=== PATIENT | male | born 1965 | race Caucasian/White ===

== ENCOUNTER 2018-06-13 13:50 | Emergency (ER) | payer BC, SELFPAY ==
[2018-06-13 13:56] VITALS: BP 113/95; PULSE 85; RESP 20; TEMP 37; O2SAT 95
--- NOTE | 2018-06-13 14:35 | ED.GENADUL_ITS ---
Discharge Plan Disposition Patient Disposition: HOME Condition: Fair Discharge Details Chief Complaint: Laceration Clinical Impression: Laceration Primary Care Provider: Adarsh Lima ED Provider: Arin Gunderson Home Meds and New Rx's Prescriptions: No Action No Known Home Meds RF: 0 Discharge Instructions Instructions: Laceration (ED), Skin Adhesive Care (ED) Additional Instructions: Keep wound clean, dry, covered. Monitor for signs of infection including redness, warmth, drainage, fever/chills, increased pain. These arise please seek care urgently once again. You may Wash the wound starting tomorrow with running water but do not soak or submerge. Will have adhesive to come off naturally. Please not put any ointment over the adhesive as this may cause premature breakdown. Please follow up with primary care as needed. Referrals: Adarsh Lima, [Primary Care Provider] - Discharge Data Discharge Date/Time-TO BE ENTERED AT DEPARTURE: 06/13/18 14:56 Medical Decision Making Patient presents with c/c of laceration to the right forearm with piece of evert. He is UTD. On exam, patient has a superficial wound to the dorsal aspect of the right forearm, approximately 4cm in length. The ednges of the wound are very thin, one area of which is 5mm in length and nearly completely amputated. The skin in this area has darkened and I discussed my concern for its viability with the patient. We did discuss revision of the wound edges but he prefers to leave this intact at this time. Given the depth, I did not recomenned suture closure. Rather, we discussed closure with adhesive. Discussed risks/benefits and procedural steps, he voices understanding and wishes to proceed. The wound was explored and irrigated. Cleansed with chlorohexidine. Wound edges were placed in approximated fashion, thin layer of adhesive aplied. Dressing applied over this by nursing staff. We discussed care of wound and adhisive. Discusses signs and symptoms of infectiono and when to seek care urgently once again. All of his quesitons and concerns were addressed, he is in agreement with this plan. HPI General Mode of arrival: ambulatory . Date/Time Provider Initiated Documentation: 06/13/18 14:06 . Limitations to Documentation: no limitations . Information obtained by: patient and family . HPI Narrative: Patient a 52-year-old [id number] male, accompanied by his , with chief complaint of laceration to the right dorsal forearm. Was afraid of arrival he was walking outside when he caught his arm with a piece of tin that was covering his wood pile. Denies other injury at the time of the incident. Denies any sensation. Denies any weakness or pain with movement of the elbow or wrist pain. Reports tetanus was 3 years ago. Related Data Home Medications Medication Instructions Recorded Confirmed Unknown [No Known Home Meds] 10/30/17 06/13/18 Allergies Allergy/AdvReac Type Severity Reaction Status Date / Time No Known Allergies Allergy Unverified 06/13/18 13:58 General Stated Complaint: Laceration EBONY: 3 Review of Systems Constitutional Denies chills and Denies fever(s) Musculoskeletal Reports as per HPI, Denies joint swelling, Denies limited range of motion, Denies muscle weakness, Denies numbness, Denies stiffness and Denies tingling Integumentary/Breasts Reports as per HPI Neurologic Reports as per HPI, Denies numbness and Denies tingling PFSH Family History Mother No problems noted. Father Aortic aneurysm Hyperthyroidism Thyrotoxicosis Brother No problems noted. Brother No problems noted. Brother No problems noted. Grandfather No problems noted. Grandfather Neoplasm Grandmother No problems noted. Grandmother No problems noted. Social History Smoking/Tobacco Use Status: Never Exam Const General: cooperative, healthy appearing, comfortable, no acute distress, well developed and well groomed Nutritional Appearance: average body habitus and well nourished Orientation: alert and awake Resp Effort & Inspection: normal respiratory effort, able to speak in complete sentences and no respiratory distress Cardio Rate: regular rate Rhythm: regular rhythm Skin Trauma: laceration (patient has a irregularly shaped 4cm skin tear. Lateral most edge is lifted up in a thin small segment, this has already begun to darken. Does not expose the subcutaneous tissue. No surrounding erythema, warmth or drainage. No pain with palpation. ) Neuro General: alert and awake Cognition: normal cognition Motor: muscle tone normal throughout and strength 5/5 throughout Sensory Exam: no sensory deficits noted Extrem General: abnormal to inspection (laceration to the dorsal aspect of the right forearm. ), full ROM, normal capillary refill, no joint enlargement and normal gait Psych Appearance: grossly normal and well kempt Mental Status: mental status grossly normal Speech and Movement: speech and movement normal Course Vital Signs Temperature 37 C 06/13/18 13:56 Pulse 85 06/13/18 13:56 Respiratory Rate 20 06/13/18 13:56 Blood Pressure 113/95 H 06/13/18 13:56 Pulse Oximetry 95 06/13/18 13:56 Temperature 37 C 06/13/18 13:56 Temperature Source Temporal Artery Scan 06/13/18 13:56 Pulse 85 06/13/18 13:56 Respiratory Rate 20 06/13/18 13:56 Respiratory Effort Non-Labored 06/13/18 14:00 Blood Pressure 113/95 H 06/13/18 13:56 Pulse Oximetry 95 06/13/18 13:56 Oxygen Delivery Method Room Air 06/13/18 13:56 Oxygen Flow Rate 0 06/13/18 13:56 Pain Level 0 06/13/18 13:56 Procedures Laceration right forearm: Site: upper extremity Side (If applicable): right Size (cm): 4 Description: flap, irregular and clean Depth: simple, single layer (very superficial, not actively bleeding) Pre-repair: wound explored and irrigated extensively Skin layer closed with: other (adhesive)
== END 2018-06-13 14:56 | disposition home or self-care (01) ==
PROVIDERS: Emergency Provider Physician Assistant; PCP Emergency Medicine
DX: S51.811A Laceration without foreign body of right forearm, initial encounter (principal); W26.8XXA Contact with other sharp object(s), not elsewhere classified, initial encounter
CPT/HCPCS: 12002

== ENCOUNTER 2018-08-28 02:00 | Outpatient (CLI) | payer BC, SELFPAY ==
[2018-08-28 08:38] LABS: Cholesterol 251 mg/dL (50-200); HDL Cholesterol 43 mg/dL (40-60); LDL CHOLESTEROL 189 mg/dL (<100); Triglyceride 57 mg/dL (30-150)
== END 2018-08-28 02:20 ==
PROVIDERS: PCP Emergency Medicine; Visit Provider Emergency Medicine
DX: E78.5 Hyperlipidemia, unspecified (principal); Z00.00 Encounter for general adult medical examination without abnormal findings
CPT/HCPCS: 36415; 80061; 83721

== ENCOUNTER 2018-11-27 09:28 | Outpatient (CLI) | payer BC, SELFPAY ==
[2018-11-27 13:17] LABS: Cholesterol 247 mg/dL (50-200); HDL Cholesterol 45 mg/dL (40-60); LDL CHOLESTEROL 181 mg/dL (<100); Triglyceride 71 mg/dL (30-150)
[2018-11-28 09:38] LABS: PSA, Screening 1.3 ng/ml (0-3.5)
== END 2018-11-27 09:48 ==
PROVIDERS: PCP Emergency Medicine; Visit Provider Emergency Medicine
DX: Z00.00 Encounter for general adult medical examination without abnormal findings (principal); Z12.5 Encounter for screening for malignant neoplasm of prostate; E78.5 Hyperlipidemia, unspecified
CPT/HCPCS: 36415; 80061; 83721; 84153

== ENCOUNTER 2019-10-05 13:51 | Emergency (ER) | payer BC, SELFPAY ==
[2019-10-05 13:53] VITALS: BP 159/112; PULSE 60; TEMP 36.7; O2SAT 96
--- NOTE | 2019-10-05 14:09 | ED.GENADUL_ITS ---
Discharge Plan Disposition Patient Disposition: HOME Condition: Fair Discharge Details Chief Complaint: Orthopedic Clinical Impression: Knee pain, left Primary Care Provider: Adarsh Lima ED Provider: Marcus Bennett Home Meds and New Rx's Prescriptions: No Action No Known Home Meds RF: 0 Discharge Instructions Additional Instructions: You were seen in the emergency department today for evaluation of knee pain. You have been referred to orthopedics. You should be contacted by care management here to arrange your follow-up with the orthopedic doctors. As we discussed, your blood work is normal. Your x-ray however shows some calcifications posterior to your knee. This could be due to many things including a benign tumor of the cartilage. Return to the emergency department immediately if you develop any difficulty breathing, chest pain, numbness, fever, or for any other concerning or worsening symptoms at all. Medical Decision Making This patient is a 54-year-old male who presents with left posterior knee pain. He has no evidence of ischemia, d-dimer is negative making DVT unlikely. He has no warmth or erythema or any concern of septic joint. His x-ray however does show a lower popliteal fossa lesion demonstrating rings of calcification in the differential includes synovial osteochondromatosis. He will need to follow-up with orthopedics. He may need an MRI. I did inform the patient of these findings. He will be given crutches here and referred to orthopedics. Patient agrees with the outpatient treatment plan, was given return precautions and discharge instructions. HPI I guess it is an old injury. This patient is a 54-year-old male who presents to the emergency department with chief complaint of left knee pain. He states that a few weeks ago, he injured his left knee while trying to pull a trampoline. He went to his primary care provider. He is concerned because he was unable to walk on it last night and today because of the pain. He describes the pain is sharp, posterior to the left knee. He denies calf pain. He denies numbness or tingling. He denies weakness. It is very painful to walk on. Remaining still makes it better. He is able to straight leg raise and can flex his knee but flexing it makes it painful. No recent travel. No other injuries. He denies any chest pain or difficulty breathing or any other recent illness. No fevers. General Date/Time Provider Initiated Documentation: 10/05/19 13:56 . Related Data Home Medications Medication Instructions Recorded Confirmed Unknown [No Known Home Meds] 10/30/17 10/05/19 Allergies Allergy/AdvReac Type Severity Reaction Status Date / Time No Known Allergies Allergy Verified 10/05/19 13:58 General Stated Complaint: Orthopedic EBONY: 4 Review of Systems Narrative: Gen: no fevers. Card: no chest pain. Resp: No cough, difficulty breathing. Abd: no vomiting, abd pain. The rest of the 10 point review of systems is negative except as described in the HPI and above in the ROS. [facility] Family History Mother No problems noted. Father Aortic aneurysm Hyperthyroidism Thyrotoxicosis Brother No problems noted. Brother No problems noted. Brother No problems noted. Maternal Grandfather No problems noted. Paternal Grandfather Cancer Maternal Grandmother No problems noted. Paternal Grandmother No problems noted. Son No problems noted. Social History Smoking/Tobacco Use Status: Former Tobacco Use Alcohol Intake: former Drug use: Never Substance use type: marijuana Caregiver/Support person: No Household members: spouse, family and children Pets and animals: Yes Pets and animals: cat(s) and dog(s) Sexually active: Yes Do you think of yourself as: straight/heterosexual Current gender identity: male What is your relationship status?: How often do you talk on the phone with friends or family?: three or more times per week How often do you get together with friends or relatives?: three or more times per week How often do you attend yazdanism or latter-day services?: decline to answer Do you belong to any clubs or organized social groups?: no Panel score (0-1 are the most socially isolated patients): 2 Duration: > 90 minutes/day Frequency: daily Elvira/Orthodoxy: None Special elvira needs: No Do you feel safe in your relationship?: Yes Exam Narrative Exam Narrative: Gen: no acute distress, alert. Eyes: EOMs intact. Neck: normal ROM. Lung: no respiratory distress. Card: RRR. Upper extremity: no evidence of trauma. Lower extremity: Right lower extremity unaffected with 2+ DP pulse. Left lower extremity: 2+ DP pulse. Normal distal movement, normal distal strength and sensation. Can straight leg raise and flex knee. There is very mild swelling of the left knee. It is not tender to palpation. It is not warm, there is no erythema. Neuro: speech normal, no gross motor deficits. Psych: alert and oriented to person, place time, normal affect. Skin: warm, intact. Course Vital Signs Vital signs: Vital Signs Temperature 36.7 C 10/05/19 13:53 Pulse 60 10/05/19 13:53 Blood Pressure 159/112 H 10/05/19 13:53 Pulse Oximetry 96 10/05/19 13:53 Temperature 36.7 C 10/05/19 13:53 Temperature Source Skin 10/05/19 13:53 Pulse 60 10/05/19 13:53 Respiratory Effort Non-Labored 10/05/19 13:58 Blood Pressure 159/112 H 10/05/19 13:53 Blood Pressure Position Sitting 10/05/19 13:53 Pulse Oximetry 96 10/05/19 13:53 Oxygen Delivery Method Room Air 10/05/19 13:53 Oxygen Flow Rate 0 10/05/19 13:53 Pain Level 10 10/05/19 13:53
[2019-10-05 14:26] LABS: Abs Immature Grans 0.01 k/cumm (0.0-0.09); Absolute Basophil Count 0.03 k/cumm (0.0-0.2); Absolute Eosinophil Count 0.19 k/cumm (0.0-0.7); Absolute Lymphocyte Count 1.96 k/cumm (1.2-3.4); Absolute Monocyte Count 0.56 k/cumm (0.11-0.7); Absolute Neutrophil Count 5.11 k/cumm (1.2-6.7); Basophils % 0.4; Eosinophils % 2.4; HCT 42.2 % (40.0-50.0); HGB 14.3 g/dL (13.5-17.5); Immature Grans % 0.1 %; Lymphocytes % 24.9; Mean Corp. HGB Concentration 33.9 g/dL (32.0-36.0); Mean Corpuscular Hemoglobin 31.6 pg (27.0-33.0); Mean Corpuscular Volume 93.2 fL (80-95); Mean Platelet Volume 9.3 fL (8.0-11.0); Monocytes % 7.1; Neutrophils % 65.1; Platelet Count 338 x1000/uL (130-400); RBC 4.53 m/cumm (4.50-6.00); RBC Distribution Width 13.2 % (11.8-14.1); White Blood Cell Count 7.86 k/cumm (4.4-10.8)
--- NOTE | 2019-10-05 14:35 | DI.RAD_ITS ---
EXAM: XR KNEE LT 4V AP,LAT,ALFRED,PAT CLINICAL HISTORY: fall a few weeks ago, worsening pain. COMPARISON: No exams were available for comparison FINDINGS: Five views were obtained. There is narrowing of the medial tibiofemoral cartilaginous joint space wi th subchondral sclerosis and scalloping of femoral condyle and to a lesser degree the medial tibial p lateau. Moderate hypertrophic marginal osteophyte formation noted involving all joints of the knee. There is partially calcified body seen posteriorly which is likely to lie in the knee joint and whic h may represent a loose joint body, other entities including synovial osteochondromatosis not exclude d. No evidence of acute fracture. IMPRESSION: No acute fracture. Question loose joint body posteriorly versus other etiologies. MR suggested for correlation if clinically appropriate.
[2019-10-05 14:37] LABS: Prothrombin Time 9.7 sec (9.3-11.0)
[2019-10-05 14:39] LABS: ALT 24 U/L (16-63); AST 17 U/L (15-37); Albumin 3.8 g/dL (3.4-5.0); Alkaline Phosphatase 65 U/L (46-116); Anion Gap 9.1 mmol/L (3-11); BUN 19 mg/dL (7-18); Bilirubin, Total 0.4 mg/dL (0.2-1.0); CO2 25.9 mmol/L (21.0-32.0); CREATININE 0.76 mg/dL (0.70-1.30); Calcium 8.8 mg/dL (8.5-10.1); Chloride 103 mmol/L (98-107); Glucose 108 mg/dL (74-106); Potassium 4.1 mmol/L (3.5-5.1); Sodium 138 mmol/L (136-145); Total Protein 7.3 g/dL (6.4-8.2)
[2019-10-05 15:01] LABS: D-Dimer 348 ng/mlFEU (<500)
--- NOTE | 2019-10-05 15:16 | DI.VRAD_ITS ---
PROCEDURE INFORMATION: Exam: XR Left Knee Exam date and time: 10/05/2019 2:42 PM Age: 54 years old Clinical indication: Other: Fall a few weeks ago, worsening pain TECHNIQUE: Imaging protocol: XR Left knee. Views: 4 or more views. COMPARISON: No relevant prior studies available. FINDINGS: Bones/joints: There is no evidence of acute fracture. There is no evidence of joint malalignment or dislocation. There are moderate degenerative changes of the knee joint, predominantly involving the medial joint compartment. There is no evidence of a joint effusion. Soft tissues: Popliteal fossa lesion which demonstrates arcs and rings of calcification. IMPRESSION: 1. No acute fracture. 2. Lower popliteal fossa lesion which demonstrates arcs and rings of calcification. Differential diagnosis includes entities such as synovial osteochondromatosis. Recommend MRI for further evaluation. 3. Moderate degenerative joint disease in the knee. Dictated and Authenticated by: Farrukh Bonner MD. Ordering:FORREST Velazquez MD
== END 2019-10-05 15:36 | disposition home or self-care (01) ==
PROVIDERS: Emergency Provider Emergency Medicine; PCP Emergency Medicine
DX: M25.562 Pain in left knee (principal)
CPT/HCPCS: 36415; 80053; 99283; 73564; 85025; 85379; 85610; E0114

== ENCOUNTER 2020-03-05 15:11 | Emergency (ER) | payer BC, SELFPAY ==
[2020-03-05 15:21] VITALS: BP 141/94; PULSE 76; RESP 15; TEMP 36.7; O2SAT 96
--- NOTE | 2020-03-05 16:09 | ED.GENADUL_ITS ---
Discharge Plan Disposition Patient Disposition: HOME Condition: Stable Discharge Details Chief Complaint: Laceration Clinical Impression: Laceration of left wrist Primary Care Provider: Adarsh Lima ED Provider: Damaris Montague Home Meds and New Rx's Prescriptions: No Action No Known Home Meds RF: 0 Discharge Instructions Instructions: Laceration (ED) Additional Instructions: Keep initial dressing in place for 1 to 2 days. Then begin to wash area with soap and water gently. Pat dry or air dry thereafter. Apply a light amount of antibiotic ointment over the laceration and apply a dressing. Keep covered and clean. Avoid submerging wound in water. Activities as tolerated. Suture removal in 10 to 14 days as discussed. Observe for any signs of infection specifically redness, swelling, drainage, warmth or pain at the site. Return for any worsening, concerns or signs of infection sooner if needed Medical Decision Making This is a 54-year-old patient presenting for a left wrist laceration which occurred prior to arrival with a new blade on a utility knife. Patient's tetanus up-to-date 8 years ago. Patient's bleeding is controlled. No pain with range of motion. Nothing to indicate ligamentous injury. Discussed tetanus prophylaxis and patient would prefer to update with PCP at 10 years which I feel is reasonable as this is a clean injury. No significant contamination to the wound. Nothing to indicate deep extension on exploration of the wound. Patient tolerated procedure without difficulty. Wound edges well approximated Wound management discussed The patient was stable and requested discharge. Prior to discharge, my usual and customary return precautions were reviewed with the patient - this included follow-up instructions and reasons to return to the Emergency Department if conditions worsens, does not improve as expected, or other new concerns arise. HPI General Date/Time Provider Initiated Documentation: 03/05/20 15:13 . HPI Narrative: Patient presents with laceration to left wrist with utility knife which occurred prior to arrival. Patient's tetanus up-to-date in 2009. Patient concerned he may require sutures. Patient denies any wrist pain. No weakness of hand. Full range of motion of hand. Denies any numbness or tingling of hand. Injury occurred prior to arrival. Bleeding is controlled. Regarding Covid patient has had no recent exposures. Has been maintaining social distancing. No chest pain, difficulty breathing shortness of breath or wheezing. No fevers or chills. Denies body ache. Denies any other concerns or complaints. Related Data Home Medications Medication Instructions Recorded Confirmed Unknown [No Known Home Meds] 10/30/17 03/05/20 Allergies Allergy/AdvReac Type Severity Reaction Status Date / Time No Known Allergies Allergy Verified 03/05/20 15:25 General Stated Complaint: Laceration EBONY: 4 Review of Systems All systems reviewed & are unremarkable except as noted in HPI and below PFSH Social History Smoking/Tobacco Use Status: Former Tobacco Use Alcohol Intake: former Drug use: Never Substance use type: marijuana Caregiver/Support person: No Household members: spouse, family and children Pets and animals: Yes Pets and animals: cat(s) and dog(s) Sexually active: Yes Do you think of yourself as: straight/heterosexual Current gender identity: male What is your relationship status?: How often do you talk on the phone with friends or family?: three or more times per week How often do you get together with friends or relatives?: three or more times per week How often do you attend sikhism or scientology services?: decline to answer Do you belong to any clubs or organized social groups?: no Panel score (0-1 are the most socially isolated patients): 2 Duration: > 90 minutes/day Frequency: daily Elvira/Nondenominational: None Special elvira needs: No Do you feel safe at home: Yes Do you feel safe in your relationship?: Yes Exam Narrative Exam Narrative: CONST: Healthy appearing patient, in no acute distress. Well hydrated. Alert and oriented. HENMT: Head nomocephalic, normal to inspection. Atraumatic. Hearing grossly normal. EYES: General normal appearance. Alignment normal. Eyelids normal. Conjunctiva normal. NECK: Normal visual inspection. FROM. Trachea midline. No Midline tenderness. CHEST: Normal insepection of the chest. RESP: Normal respiratory effort. Speaking full sentences. No cough. No audible wheezing. No retractions. CARDIO: No JVD. MUSCULOSKELETAL: Normal Gait. FROM of all extremities. No bony pain with palpation through forearm, wrist or hand. Flexion extension intact throughout wrist and hand. Nothing to indicate ligamentous injury. SKIN: Normal. Dry. No rashes. 3 cm linear laceration noted to the ulnar aspects of the wrist. Bleeding is controlled. Extension beyond the dermis but not involving the muscle layers. NEURO: Alert and awake. Speech clear. PSYCH: Normal affect. Cooperative. Course Vital Signs Vital signs: Vital Signs Temperature 36.7 C 03/05/20 15:21 Pulse 76 03/05/20 15:21 Respiratory Rate 15 03/05/20 15:21 Blood Pressure 141/94 H 03/05/20 15:21 Pulse Oximetry 96 03/05/20 15:21 Temperature 36.7 C 03/05/20 15:21 Temperature Source Temporal Artery Scan 03/05/20 15:21 Pulse 76 03/05/20 15:21 Respiratory Rate 15 03/05/20 15:21 Respiratory Effort Non-Labored 03/05/20 15:26 Blood Pressure 141/94 H 03/05/20 15:21 Blood Pressure Position Sitting 03/05/20 15:21 Pulse Oximetry 96 03/05/20 15:21 Oxygen Delivery Method Room Air 03/05/20 15:21 Oxygen Flow Rate 0 03/05/20 15:21 Pain Level 1 03/05/20 15:21 Procedures Laceration Laceration 1: Site: upper extremity (Wrist) Side (If applicable): left Size (cm): 3 Description: linear Depth: simple, single layer Local Anesthetic: Lidocaine 1% Amount of anesthesia used (mL): 4 Pre-repair: wound explored and irrigated extensively Skin layer closed with: other (Prolene) Size (cm): 4-0 Number of sutures: 6 Technique: simple, interrupted
== END 2020-03-05 16:15 | disposition home or self-care (01) ==
PROVIDERS: Emergency Provider Physician Assistant; PCP Emergency Medicine
DX: S61.512A Laceration without foreign body of left wrist, initial encounter (principal); W26.0XXA Contact with knife, initial encounter
CPT/HCPCS: 12002

== ENCOUNTER 2020-05-19 14:15 | Outpatient (REF) | payer BC, SELFPAY ==
[2020-05-19 21:26] LABS: Calculated LDL 182 mg/dL (<100); Cholesterol 248 mg/dL (<200); HDL Cholesterol 53 mg/dL (40-60); Triglyceride 67 mg/dL (<150)
== END 2020-05-19 14:35 ==
LOC: LBN 14:15
PROVIDERS: PCP Emergency Medicine; Visit Provider Emergency Medicine
DX: E78.5 Hyperlipidemia, unspecified (principal)
CPT/HCPCS: 80061

== ENCOUNTER 2020-05-29 09:13 | Day surgery (SDC) | payer BC, SELFPAY ==
[2020-05-29 09:30] VITALS: BP 142/95; PULSE 62; RESP 16; TEMP 36.3; O2SAT 99
[2020-05-29] MEDS: Lactated Ringers 1,000 ML 80 ML IV (09:50)
--- NOTE | 2020-05-29 10:51 | COLE_ITS ---
Date of service: 05/29/20 Time of Service: 11:33 Colonoscopy Report Date of procedure: 05/29/20 Pre-op diagnosis general: Screening Post-op diagnosis procedure note: other (Rectal polyp) Procedure: Colonoscopy with cold forceps polypectomy Surgeon: Salina Bajwa Anesthesia proc note operative: MAC Indications: This 54 year old man presents for his first screening colonoscopy. No symptoms or FH colon cancer. Procedure Description: The patient was placed in the left Jones position. Propofol was titrated to sedation. Digital rectal examination revealed no abnormalities. The scope was advanced to the cecum without difficulty. The ileocecal valve and appendiceal orifice were clearly identified. The prep was good. The scope was slowly withdrawn over the course of greater than 6 minutes with no abnormalities seen in the ascending, transverse, descending, sigmoid c olon. A less than 1cm polyp was removed from the rectum with the cold forceps. The rectum was otherwise normal including on retroflexed view. The patient tolerated the procedure well and was stable to recovery. Plan for colonoscopy in 5-7 years if the polyp is adenomatous.
--- NOTE | 2020-05-29 10:51 | W.PM.DSUDISC ---
Discharge Plan Disposition Patient Disposition: HOME Condition: Good Discharge Details Reason For Visit: Colonoscopy Attending Provider: Salina Bajwa Primary Care Provider: Adarsh Lima Home Meds and New Rx's Prescriptions: Discontinued polyethylene glycol 3350 17 gram/dose powder 238 g PO ONCE Qty: 238 RF: 0 bisacodyl [Dulcolax (bisacodyl)] 5 mg tablet,delayed release (DR/EC) 5 mg PO ONCE Qty: 4 RF: 0 Discharge Instructions Additional Instructions: Findings: One small polyp was removed from the rectum. My office will contact you with biopsy results. Follow up: Plan for a colonoscopy in 5-7 years depending on the biopsy results. Please call if you develop: fevers >101.5 Nausea or Vomiting Abdominal pain that is not transient DAY SURGERY UNIT POST COLONOSCOPY INSTRUCTIONS 1. Because there will be medication in your system for the next 24 hours, you may feel a little sleepy. Your coordination will be affected. Therefore: a. Do not drive or operate dangerous equipment for 24 hours. b. Do not drink alcohol beverages for 24 hours (not even beer). c. Plan to go home and rest for the day. 2. Generally there are no restrictions on your activity after a day or so has gone by, but you may feel a bit fatigued for a few days. 3 After you arrive home you may have a light meal and return to a normal diet as you can tolerate it without feeling sick to your stomach. 4. After surgery, you may feel pain or discomfort. This should be only transient, but if it persists please contact your doctor. 5. If there are any questions regarding the findings of your procedure, please feel free to contact your doctor. 6. If you are unable to contact your doctor with a problem, contact the hospital at [phone]. 7. Continue all your regular medications unless directed otherwise. I understand the above instructions and have no questions. Signature of Patient or Responsible Adult Escort Date/Time Name of Responsible Adult Escort Signature of Nurse Date/Time Activity:: Activity as Tolerated Diet:: As Tolerated Discharge Orders Discharge Orders: Discharge Order (Routine); Ordered 05/29/20 Ordered By: Salina Bajwa DS: Diagnosis Discharge Diagnosis (1) Rectal polyp: Status: Acute
--- NOTE | 2020-05-29 11:22 | BOWEL_PTH ---
PATIENT: Kirk Nelson LOC: [facility] U#:[id number] AGE/SX: 54/M ROOM: RE05/29/[address]: Salina Bajwa MD : [id number] BED: DIS: 05/29/2020 SPEC #: [id number] RECD: 05/29/20 12:57 STATUS: LOLY REQ #: [id number] JARRET: 05/29/20 11:[address]: Salina Bajwa DEPT: Surgical Specimen RECD BY: Barbara Arroyo ENTERED: 05/29/20 12:57 SP TYPE: Bowel OTHR DR: Adarsh Lima DO Tissues: 1 - BIOPSY BOWEL Procedures: GROSS AND MICRO LEVEL 4 Comments: [id number]
[2020-05-29 12:05] VITALS: BP 146/88; PULSE 65; RESP 16; TEMP 36.3; O2SAT 100
== END 2020-05-29 12:27 | disposition home or self-care (01) ==
PROVIDERS: PCP Emergency Medicine; Visit Provider Surgery
PROC: 0DJD8ZZ Inspection of Lower Intestinal Tract, Via Natural or Artificial Opening Endoscopic (ICD-10-PCS; CPT 45378; principal; 2020-05-29 11:00)
DX: Z12.11 Encounter for screening for malignant neoplasm of colon (principal); D12.8 Benign neoplasm of rectum; E66.9 Obesity, unspecified
CPT/HCPCS: 45380; 88305; J2704

== ENCOUNTER → 2022-09-01 19:15 | Outpatient (CLI) | payer BC, SELFPAY ==
--- NOTE | 2022-09-01 19:00 | DI.RAD_ITS ---
Exam(s) XR FOOT LT COMPLETE EXAM: XR FOOT LT COMPLETE CLINICAL HISTORY: r/o fracture. TECHNIQUE: 2D digital imaging was performed. COMPARISON: No exams were available for comparison FINDINGS: 3 views There is no evidence of acute fracture or diastasis of the Lisfranc joint. Bone density normal. No osseous lesions nor erosions. No radiopaque foreign body. IMPRESSION: No significant osseous findings. DATA REPOSITORY: RADIATION DOSE DELIVERED:
--- NOTE | 2022-09-01 20:00 | DI.VRAD_ITS ---
PROCEDURE INFORMATION: Exam: XR Left Foot Exam date and time: 09/01/2022 7:36 PM Age: 57 years old Clinical indication: Other: Left foot pain, R/O FX TECHNIQUE: Imaging protocol: Radiologic exam of the Left foot. Views: 3 or more views. COMPARISON: CR XR KNEE LT 4V AP,LAT,ALFRED,PAT 10/05/2019 2:35 PM FINDINGS: Bones/joints: Osseous mineralization is normal. There are no inflammatory osseous erosive changes. The joint spaces are maintained without degenerative changes. There is mild chronic appearing deformity of the 4th and 5th proximal phalanges, suggesting old healed fractures. There are no acute displaced fractures or subluxations. There is a 2 x 3 mm calcified lesion within the 2nd middle phalanx, suggesting a benign bone island. The plantar arch is maintained. Soft tissues: Normal. IMPRESSION: No acute displaced fractures or subluxations identified. Dictated and Authenticated by: Farrukh Rosen MD. Ordering:SUSAN Tran MD
== END ==
PROVIDERS: PCP Nurse Practitioner Family; Visit Provider Nurse Practitioner Family
DX: M79.672 Pain in left foot (principal)
CPT/HCPCS: 73630

== ENCOUNTER 2023-09-01 01:11 | Outpatient (CLI) | payer BC, SELFPAY ==
[2023-09-01 14:35] LABS: Hemoglobin A1C 5.6 % (<5.7)
[2023-09-01 15:53] LABS: Calculated LDL 160 mg/dL (<100); Cholesterol 222 mg/dL (<200); HDL Cholesterol 53 mg/dL (40-60); Triglyceride 46 mg/dL (<150)
[2023-09-03 23:02] LABS: Anaplasma phagocytophilum Negative (Negative); B. miyamotoi PCR Negative (Negative); Babesia divergens/MO-1 Negative (Negative); Babesia duncani Negative (Negative); Babesia microti Negative (Negative); Ehrlichia chaffeensis Negative (Negative); Ehrlichia ewingii/canis Negative (Negative); Ehrlichia muris eauclairensis Negative (Negative)
[2023-09-04 11:42] LABS: Lyme Ab w Rflx to Lyme Confirm Negative (Negative)
== END 2023-09-01 01:12 | disposition home or self-care (01) ==
LOC: LOS 01:12
PROVIDERS: PCP Nurse Practitioner Family; Visit Provider Nurse Practitioner Family
DX: Z13.1 Encounter for screening for diabetes mellitus (principal); Z13.220 Encounter for screening for lipoid disorders
CPT/HCPCS: 36415; 80061; 87798; 83036; 86618